=== PATIENT | female | born 1970 | race Caucasian/White ===

== ENCOUNTER 2022-03-11 17:59 | Emergency (ER) | payer OTHER ==
[2022-03-11] MEDS ORDERED: ACETAMINOPHEN 325 MG TABLET (FP) PO ONE (18:14)
[2022-03-11 18:17] VITALS: RESP 20; BMI 27.4
[2022-03-11] MEDS ORDERED: SODIUM CHLORIDE 0.9% 500 ML INFUS.BAG IV ONE (19:02)
[2022-03-11 19:30] LABS: EPI CELLS 3 /uL (0-25.1); HYALINE CASTS 0 /uL (0-3.1); PH,URINE 6.5 (5.0-8.0); URINE APPEARANCE CLOUDY; URINE BACTERIA 789 /uL (0-1359); URINE BILIRUBIN NEGATIVE (NEGATIVE); URINE COLOR YELLOW; URINE GLUCOSE (UA) NEGATIVE (NEGATIVE); URINE KETONE NEGATIVE (NEGATIVE); URINE LEUK ESTERASE 2+ (NEGATIVE); URINE NITRITE NEGATIVE (NEGATIVE); URINE PROTEIN TRACE (NEGATIVE); URINE RBC 60 /uL (0-23.9); URINE WBC 393 /uL (0-25.8)
[2022-03-11] MEDS ORDERED: ACETAMINOPHEN 325 MG TABLET (FP) ONE (19:36)
[2022-03-11] MEDS ORDERED: CEFTRIAXONE 1,000 MG in DEXTROSE 5%-WATER - 50 ML IVPB ONE (19:39)
[2022-03-11] MEDS ORDERED: cefTRIAXone SODIUM 1 GM VIAL ONE (20:04)
[2022-03-11 20:38] VITALS: BP 101/56; PULSE 108; TEMP 99.1
[2022-03-11] MEDS ORDERED: FAMOTIDINE 20 MG TABLET PO ONE (20:41)
[2022-03-11] MEDS ORDERED: MAG HYDROX/AL HYDROX/SIMETH -MYLANTA- ORAL SUSPENSION PO ONE (21:04)
[2022-03-11] MEDS ORDERED: FAMOTIDINE 20 MG TABLET ONE (21:06)
[2022-03-11] MEDS ORDERED: MAG HYDROX/AL HYDROX/SIMETH 30 ML UNIT-DOSE CUP ONE (21:06)
[2022-03-11 21:19] LABS: BASO % 0.3 % (0-2.0); EOS % 1.4 % (0-4.5); HEMATOCRIT 42.8 % (32.4-45.2); HEMOGLOBIN 14.5 GM/dL (10.7-15.3); LYMPH % 17.5 % (8-40); MCH 30.8 pg (25.7-33.7); MCHC 33.8 g/dl (32.0-36.0); MEAN CELL VOLUME 91.1 fl (80-96); MEAN PLT VOLUME 8.5 fl (7.5-11.1); MONO % 8.4 % (3.8-10.2); NEUT % 72.4 % (42.8-82.8); PLATELET COUNT 186 10^3/uL (134-434); RDW 12.9 % (11.6-15.6); WHITE BLOOD COUNT 11.1 K/mm3 (4.0-10.0)
[2022-03-11 21:44] LABS: ALBUMIN 3.6 g/dl (3.4-5.0); BLOOD UREA NITROGEN 12.6 mg/dL (7-18); CALCIUM 9.1 mg/dL (8.5-10.1)
[2022-03-11 21:47] LABS: CREATININE 0.9 mg/dL (0.55-1.3)
[2022-03-11 21:49] LABS: BILIRUBIN,TOTAL 2.1 mg/dL (0.2-1); TOT PROT 7.8 g/dl (6.4-8.2)
== END 2022-03-11 22:55 | disposition home or self-care (01) ==
LOC: JER 17:59 → JERFT 17:59
DX: R50.9 Fever, unspecified (principal); N39.0 Urinary tract infection, site not specified; R31.9 Hematuria, unspecified
CPT/HCPCS: 0241U-QW; 36415; 80053; 81003; 85025; 87040; 87086; 87186; 99284-25